=== PATIENT | female | born 1990 | race African-American/Black ===

== ENCOUNTER 2021-08-22 03:25 | Emergency (ER) | payer OTHER ==
[~2021-08-22] VITALS: Ht 157.5 cm; Wt 124.0 kg
[2021-08-22] MEDS ORDERED: KETOROLAC 60MG/2ML VIAL IM ONE (04:45)
[2021-08-22] MEDS ORDERED: ALBUTEROL 6.7GM HFA INHALER ORI ONE (05:00)
[2021-08-22] MEDS ORDERED: IBUP-2029 MT ×3 (06:51→07:01)
[2021-08-22] MEDS ORDERED: AM250 PO ×3 (06:51→07:01)
[2021-08-22] MEDS ORDERED: OXYM30SP26 BOTHNSTRLS (07:01)
[2021-08-22 07:04] VITALS: BP 155/92
[2021-08-22] MEDS ORDERED: ALBU6.7H9 INH (10:14)
== END 2021-08-22 07:05 | disposition home or self-care (01) ==
LOC: ER 03:25
DX: B34.9 Viral infection, unspecified (principal); H66.90 Otitis media, unspecified, unspecified ear; Z98.890 Other specified postprocedural states; Z20.822 Contact with and (suspected) exposure to COVID-19
CPT/HCPCS: 71045; 87426; 93005; 94640; 96372; 99285; J1885

== ENCOUNTER 2021-12-08 12:29 | Emergency (ER) | payer MEDICAID, OTHER ==
[~2021-12-08] VITALS: Ht 157.5 cm; Wt 129.0 kg
[~2021-12-08 12:29] MED LIST: ALBU6.7H9 INH; AM250 PO; IBUP-2029 MT; OXYM30SP26 BOTHNSTRLS
[2021-12-08 12:43] VITALS: BP 144/98
[2021-12-08] MEDS ORDERED: TRIA15CR61 TP (13:21)
[2021-12-08] MEDS ORDERED: CETI5TAB5 MT (13:22)
[2021-12-08] MEDS ORDERED: DEXAMETHASONE 4MG TABLET PO ONE (13:30)
[2021-12-08] MEDS: CETIRIZINE 10MG TABLET PO SCH ×2 (13:46→13:49)
== END 2021-12-08 13:50 | disposition home or self-care (01) ==
LOC: ER 12:29
DX: L25.9 Unspecified contact dermatitis, unspecified cause (principal)
CPT/HCPCS: 99283; J8540

== ENCOUNTER 2022-06-03 16:16 | Emergency (ER) | payer MEDICAID ==
[~2022-06-03] VITALS: Ht 165.1 cm; Wt 114.0 kg
[~2022-06-03 16:16] MED LIST changes: +ALBU6.7H3 INH; -ALBU6.7H9 INH; +CETI5TAB5 MT; +TRIA15CR61 TP
[2022-06-03 16:35] VITALS: BP 155/89
[2022-06-04] MEDS ORDERED: KETOROLAC 60MG/2ML VIAL IM STA (00:29)
[2022-06-04] MEDS ORDERED: IBUP-2029 PO (02:35)
[2022-06-04] MEDS ORDERED: D-ME473S50 PO (02:35)
== END 2022-06-04 02:50 | disposition home or self-care (01) ==
LOC: ER 16:16
DX: J06.9 Acute upper respiratory infection, unspecified (principal); R07.0 Pain in throat; Z20.822 Contact with and (suspected) exposure to COVID-19
CPT/HCPCS: 81025; 87070; 87426; 87430; 96372; 99283; C9803; J1885

== ENCOUNTER 2023-06-13 22:51 | Emergency (ER) | payer SELFPAY ==
[~2023-06-13] VITALS: Ht 167.6 cm; Wt 137.5 kg
[~2023-06-13 22:51] MED LIST changes: +D-ME473S50 PO; +IBUP-2029 PO
[2023-06-13 23:06] VITALS: O2SAT 99
[2023-06-13 23:37] LABS: BASOPHILS % 0.8 % (0.0-2.0); EOSINOPHILS % 2.2 % (0.0-5.0); HEMATOCRIT. 38.1 % (36.0-48.0); HEMOGLOBIN. 12.9 g/dL (12.0-16.0); MEAN CORPUSCULAR HEMOGLOBIN 27.9 pg (28.0-32.0); MEAN CORPUSCULAR HGB CONC 33.7 g/dL (31.0-37.0); MEAN CORPUSCULAR VOLUME 82.7 fL (81.0-99.0); MEAN PLATELET VOLUME 9.1 fl (7.4-10.4); PLATELET 337 x1000/uL (130-400); RED BLOOD CELL COUNT 4.61 mill/uL (4.2-5.4); RED CELL DISTRIBUTION WIDTH 13.5 % (11.6-14.6); WHITE BLOOD COUNT 9.4 x1000/uL (4.5-11.0)
[2023-06-13 23:42] LABS: CLARITY URINE CLEAR (CLEAR); COLOR URINE YELLOW (YELLOW)
[2023-06-13 23:43] LABS: GLUCOSE URINE NEGATIVE (NEGATIVE); KETONES URINE NEGATIVE (NEGATIVE); LEUKOCYTE ESTERASE URINE NEGATIVE (NEGATIVE); NITRITE URINE NEGATIVE (NEGATIVE); OCCULT BLOOD URINE NEGATIVE (NEGATIVE); PH URINE 6.5 (4.5-8.0); PROTEIN URINE NEGATIVE (NEGATIVE); SPECIFIC GRAVITY URINE 1.023 (1.005-1.030); UROBILINOGEN URINE 0.2 E.U./dL (0.2-1.0)
[2023-06-14 00:04] LABS: PARTIAL THROMBOPLASTIN TIME 30.1 sec (23.4-31.0); PROTHROMBIN TIME 10.5 sec (9.6-11.0)
[2023-06-14 02:22] LABS: POTASSIUM 3.9 mEq/L (3.5-5.1); SODIUM 141 mEq/L (136-145)
[2023-06-14 02:23] LABS: ALBUMIN 4.5 g/dL (3.2-4.8); CALCIUM 9.5 mg/dL (8.7-10.4); CARBON DIOXIDE 26 mEq/L (21-32); CHLORIDE 106 mEq/L (98-107); CREATININE 0.9 mg/dL (0.6-1.0); GLUCOSE 121 mg/dL (70-105)
[2023-06-14 02:24] LABS: ALANINE AMINOTRANSFERASE 14 IU/L (10-49); ASPARTATE AMINOTRANSFERASE 13 IU/L (<34)
[2023-06-14 02:40] LABS: PROTEIN TOTAL 7.5 g/dL (6.0-8.3)
[2023-06-14 02:41] LABS: BILIRUBIN TOTAL 0.6 mg/dL (0.1-1.0); UREA NITROGEN BLOOD 14 mg/dL (9-23)
[2023-06-14 02:43] LABS: TROPONIN I HIGH SENSITIVITY 4 ng/L (3.0-34)
[2023-06-14] MEDS ORDERED: LORA-249 MT (05:03)
[2023-06-14 05:40] VITALS: BP 130/61; PULSE 70; RESP 16; TEMP 98.3
== END 2023-06-14 05:42 | disposition home or self-care (01) ==
LOC: ER 22:51
DX: F41.9 Anxiety disorder, unspecified (principal)
CPT/HCPCS: 36415; 71045; 80053; 81003; 81025; 83880; 84484; 85025; 99285

== ENCOUNTER 2024-06-19 12:47 | Emergency (ER) | payer MEDICAID ==
[~2024-06-19] VITALS: Ht 160 cm; Wt 142.8 kg
[~2024-06-19 12:47] MED LIST changes: +LORA-249 MT
[2024-06-19 13:04] VITALS: O2SAT 100
[2024-06-19] MEDS ORDERED: IBUPROFEN 600MG TABLET PO ONE (14:15)
[2024-06-19] MEDS: ACETAMINOPHEN 500MG TABLET PO ONE (14:33)
[2024-06-19] MEDS: KETOROLAC 15MG/ML VIAL IM ONE (14:34)
[2024-06-19 15:19] VITALS: BP 129/78; PULSE 84; RESP 18; TEMP 36.66960; O2SAT 99
== END 2024-06-19 15:19 | disposition home or self-care (01) ==
LOC: ER 12:47
DX: S93.409A Sprain of unspecified ligament of unspecified ankle, initial encounter (principal); Z79.899 Other long term (current) drug therapy; W18.30XA Fall on same level, unspecified, initial encounter; Y93.89 Activity, other specified; Y92.89 Other specified places as the place of occurrence of the external cause; Y99.8 Other external cause status
CPT/HCPCS: 99283; 73610; 96372; J1885

== ENCOUNTER 2025-03-18 15:16 | Emergency (ER) | payer MEDICAID ==
[~2025-03-18] VITALS: Ht 175.3 cm; Wt 127.0 kg
[~2025-03-18 15:16] MED LIST changes: +IBUP-1455 MT; +IBUP-1455 PO; -IBUP-2029 MT; -IBUP-2029 PO
[2025-03-18 15:19] VITALS: O2SAT 100
[2025-03-18] MEDS: KETOROLAC 15MG/ML VIAL IM ONE (17:15)
[2025-03-18] MEDS: ACETAMINOPHEN 325MG TABLET PO ONE (17:15)
[2025-03-18 18:12] LABS: BASOPHILS % 1.2 % (0.0-2.0); EOSINOPHILS % 1.4 % (0.0-5.0); HEMATOCRIT. 34.5 % (36.0-48.0); HEMOGLOBIN. 11.7 g/dL (12.0-16.0); LYMPHOCYTES % 20.7 % (20.0-50.0); MEAN PLATELET VOLUME 9.3 fl (7.4-10.4); MONOCYTES % 6.0 % (2.0-8.0); NEUTROPHILS % 70.7 % (40.0-76.0); PLATELET 270 x1000/uL (130-400); RED BLOOD CELL COUNT 4.29 mill/uL (4.2-5.4); RED CELL DISTRIBUTION WIDTH 14.9 % (11.6-14.6)
[2025-03-18 18:30] LABS: CREATININE 0.8 mg/dL (0.6-1.0); TROPONIN I HIGH SENSITIVITY < 4 ng/L (3.0-34); UREA NITROGEN BLOOD 10 mg/dL (9-23)
[2025-03-18 18:31] LABS: ASPARTATE AMINOTRANSFERASE 14 IU/L (<34)
[2025-03-18 18:32] LABS: BILIRUBIN DIRECT < 0.1 mg/dL (<=3.0); BILIRUBIN TOTAL 0.4 mg/dL (0.1-1.0); PROTEIN TOTAL 6.7 g/dL (6.0-8.3)
[2025-03-18 18:35] LABS: INR 1.0
[2025-03-18 18:43] LABS: B-HCG QUANTITATIVE 2164 mIU/mL (<6)
[2025-03-18] MEDS: HYDROCODONE/ACETAMINOPHEN 10/325MG TABLET PO ONE (19:46)
[2025-03-18] MEDS ORDERED: HYDR-4001 MT (21:06)
[2025-03-18 21:29] VITALS: BP 169/93; PULSE 80; RESP 18; TEMP 37; O2SAT 100
== END 2025-03-18 21:36 | disposition home or self-care (01) ==
LOC: ER 15:16
DX: O03.9 Complete or unspecified spontaneous abortion without complication (principal); R10.2 Pelvic and perineal pain; R07.89 Other chest pain; D64.9 Anemia, unspecified; Z79.899 Other long term (current) drug therapy; Z98.890 Other specified postprocedural states
CPT/HCPCS: 80076; 80048; 84702; 83690; 85025; 85610; 86850; 86900; 86901; 84484; 36415; 71045; 76801; 76817; 93005; 96372; 99285; J1885; Z7610

== ENCOUNTER 2025-04-19 00:34 | Emergency (ER) | payer MEDICAID, OTHER ==
[~2025-04-19] VITALS: Ht 167.6 cm; Wt 114.0 kg
[~2025-04-19 00:34] MED LIST changes: +HYDR-4001 MT
[2025-04-19 00:35] VITALS: TEMP 36.8; O2SAT 100
[2025-04-19] MEDS ORDERED: NALO4SPR BOTHNSTRLS (01:41)
[2025-04-19] MEDS ORDERED: HYDR-4001 MT (01:41)
[2025-04-19] MEDS: KETOROLAC 30MG/ML VIAL IM ONE (01:59)
[2025-04-19] MEDS: ONDANSETRON 4MG ODT PO ONE (02:00)
[2025-04-19] MEDS: HYDROCODONE/ACETAMINOPHEN 5/325MG TABLET PO ONE (02:00)
[2025-04-19] MEDS: CEPHALEXIN 250MG CAPSULE PO ONE (02:00)
[2025-04-19 02:09] VITALS: BP 170/105; PULSE 64; RESP 14; O2SAT 99
[2025-04-20] MEDS ORDERED: P20 MT (19:37)
[2025-04-20] MEDS ORDERED: HYDR-4001 MT (19:37)
[2025-04-20] MEDS ORDERED: AMOX1TAB16 MT (19:37)
== END 2025-04-19 02:38 | disposition home or self-care (01) ==
LOC: ER 00:34
DX: K04.7 Periapical abscess without sinus (principal); D57.1 Sickle-cell disease without crisis; Z79.899 Other long term (current) drug therapy; Z98.890 Other specified postprocedural states
CPT/HCPCS: 99284; 93005; 96372; J1885; Q0162; 99283

== ENCOUNTER 2025-04-20 16:14 | Emergency (ER) | payer BC, OTHER ==
[~2025-04-20] VITALS: Ht 170.2 cm; Wt 115.0 kg
[~2025-04-20 16:14] MED LIST changes: +NALO4SPR BOTHNSTRLS
[2025-04-20 16:16] VITALS: O2SAT 98
[2025-04-20] MEDS ORDERED: MORPHINE SULFATE 4 MG/ML INJ (FOR IV/IM USE) IV ONE (17:00)
[2025-04-20] MEDS ORDERED: DEXAMETHASONE 4MG/ML 1ML VIAL IV ONE (17:00)
[2025-04-20 17:33] LABS: BASOPHILS % 0.8 % (0.0-2.0); EOSINOPHILS % 2.1 % (0.0-5.0); HEMATOCRIT. 35.7 % (36.0-48.0); HEMOGLOBIN. 12.0 g/dL (12.0-16.0); LYMPHOCYTES % 33.5 % (20.0-50.0); MEAN PLATELET VOLUME 9.4 fl (7.4-10.4); MONOCYTES % 5.3 % (2.0-8.0); NEUTROPHILS % 58.3 % (40.0-76.0); PLATELET 281 x1000/uL (130-400); RED BLOOD CELL COUNT 4.46 mill/uL (4.2-5.4); RED CELL DISTRIBUTION WIDTH 14.4 % (11.6-14.6)
[2025-04-20 17:41] LABS: CREATININE 0.9 mg/dL (0.6-1.0); UREA NITROGEN BLOOD 9 mg/dL (9-23)
[2025-04-20] MEDS: AMPICILLIN SOD/SULBACTAM NA 3 G in SODIUM CHLORIDE 0.9% 100 ML IV SCH (18:43)
[2025-04-20] MEDS: DEXAMETHASONE 4MG/ML 1ML VIAL IV SCH (19:12)
[2025-04-20] MEDS: MORPHINE SULFATE 4 MG/ML INJ (FOR IV/IM USE) IV SCH (19:13)
[2025-04-20] MEDS ORDERED: P20 MT (19:37)
[2025-04-20] MEDS ORDERED: HYDR-4001 MT (19:37)
[2025-04-20] MEDS ORDERED: AMOX1TAB16 MT (19:37)
[2025-04-20 20:18] VITALS: BP 169/67; PULSE 71; RESP 14; TEMP 36.8; O2SAT 100
[2025-04-20] MEDS ORDERED: IOHEXOL-300 100 ML BOTTLE ONE (23:23)
== END 2025-04-20 20:28 | disposition home or self-care (01) ==
LOC: ER 16:14 → CMPBEDREQ 04-21 07:58
DX: L03.211 Cellulitis of face (principal); D57.1 Sickle-cell disease without crisis; Z79.899 Other long term (current) drug therapy; Z98.890 Other specified postprocedural states
CPT/HCPCS: 80048; 85025; 87040; 36415; 70487; 96365; 96375; 99285; Q9967; J0295; J1100; J2270; J7050; Z7610